=== PATIENT | female | born 1975 | race Caucasian/White ===

== ENCOUNTER 2021-10-03 06:15 | Inpatient (IN) ==
[2021-10-03] MEDS ORDERED: ANCEF VIAL 1 GRAM IVP ONE (06:38)
[2021-10-03] MEDS: D5 1/2 NS 1,000 ML 1,000 ML IV SCH ×5 (06:38→22:07)
[2021-10-03] MEDS ORDERED: NS 100 ML IV 100 ML ONE (06:41)
[2021-10-03] MEDS ORDERED: PEPCID 20 MG VIAL ONE (06:47)
[2021-10-03] MEDS ORDERED: ZEMURON 100 MG VIAL ONE (06:47)
[2021-10-03] MEDS ORDERED: DIPRIVAN VIAL 20 ML ONE (06:47)
[2021-10-03] MEDS ORDERED: REGLAN INJ 10 MG VIAL ONE (06:47)
[2021-10-03] MEDS ORDERED: TORADOL 30 MG VIAL ONE ×2 (06:47→09:10)
[2021-10-03] MEDS ORDERED: XYLOCAINE 2 % (PLAIN) ONE (06:47)
[2021-10-03] MEDS ORDERED: ZOFRAN INJ 4 MG VIAL ONE (06:47)
[2021-10-03] MEDS ORDERED: OFIRMEV IV 1000 MG VIAL 1,000 MG/100 ML VIAL IV ONE (06:47)
[2021-10-03] MEDS ORDERED: BRIDION ONE (06:47)
[2021-10-03] MEDS ORDERED: VERSED ONE (06:48)
[2021-10-03] MEDS ORDERED: FENTANYL VIAL INJ 100 mcg ONE ×2 (06:48→07:46)
[2021-10-03] MEDS ORDERED: K-RIDER 10 MEQ/NS 100 ML 10 MEQ/100 ML BAG IV ONE (06:57)
[2021-10-03] MEDS ORDERED: BETADINE SOLN ONE (07:00)
[2021-10-03 07:10] VITALS: BMI 29.0
[2021-10-03] MEDS ORDERED: XYLOCAINE JELLY TOP ONE (07:26)
[2021-10-03] MEDS ORDERED: ROBINUL ONE (07:30)
[2021-10-03] MEDS ORDERED: LR 1,000 ML IV 1,000 ML IV ONE (08:28)
[2021-10-03] MEDS ORDERED: ProvayBLUE 0.5% ONE (08:35)
[2021-10-03] MEDS ORDERED: DILAUDID INJ ONE ×2 (08:37→10:36)
[2021-10-03] MEDS ORDERED: SUPRANE ONE (09:01)
[2021-10-03] MEDS ORDERED: PHENERGAN INJ 25 MG IM PRN (10:01)
[2021-10-03] MEDS ORDERED: ZOFRAN INJ 4 MG VIAL IVP PRN ×2 (10:01→10:49)
[2021-10-03] MEDS ORDERED: REGLAN INJ 10 MG VIAL IVP PRN (10:01)
[2021-10-03] MEDS ORDERED: BENADRYL INJ 50 MG VIAL IVP PRN ×2 (10:01→10:49)
[2021-10-03] MEDS ORDERED: BARHEMSYS INJ IVP PRN (10:01)
[2021-10-03] MEDS: DILAUDID INJ IVP PRN ×6 (10:11→10:46)
[2021-10-03] MEDS ORDERED: TORADOL 30 MG VIAL IVP PRN (10:49)
[2021-10-03] MEDS: MORPHINE SULFATE PCA 30 MG IVP PRN (14:16)
[2021-10-04] MEDS: MORPHINE SULFATE PCA 30 MG IVP PRN (00:52)
[2021-10-04] MEDS: D5 1/2 NS 1,000 ML 1,000 ML IV SCH ×2 (04:43→13:59)
[2021-10-04 05:36] LABS: BLOOD UREA NITROGEN 13 mg/dL (7-18); CALCIUM 8.5 mg/dL (8.5-10.1); CARBON DIOXIDE 28.4 mmol/L (21-32); CHLORIDE 103 mmol/L (98-107); CREATININE 0.81 mg/dL (0.55-1.02); SODIUM 139 mmol/L (136-145); eGFR NON BLACK RACES > 60 (>60)
[2021-10-04 05:43] LABS: BASOPHILS % (AUTO) 0.9 % (0.2-1.0); EOSINOPHILS # (AUTO) 0.1 x10^3/uL (0.0-0.2); HEMATOCRIT 26.9 % (36.0-47.0); LYMPHOCYTES # (AUTO) 1.5 X10^3/uL (1.3-2.9); LYMPHOCYTES % (AUTO) 26.5 % (21.0-51.0); MEAN CORPUSCULAR HEMOGLOBIN 29.2 pg (27.0-34.0); MEAN CORPUSCULAR HGB CONC 34.6 g/dL (33.0-35.0); MEAN CORPUSCULAR VOLUME 84.6 fL (80.0-100.0); MEAN PLATELET VOLUME 9.6 fL (7.4-11.0); MONOCYTES # (AUTO) 0.6 x10^3/uL (0.3-0.8); MONOCYTES % (AUTO) 11.3 % (0.0-13.0); NEUTROPHILS # (AUTO) 3.3 x10^3/uL (2.2-4.8); NEUTROPHILS % (AUTO) 59.3 % (42.0-75.0); RED BLOOD COUNT 3.18 X10^6/uL (3.5-5.4); RED CELL DISTRIBUTION WIDTH 14.4 % (11.6-16.5); WHITE BLOOD COUNT 5.6 X10^3/uL (3.6-10.0)
[2021-10-04 05:44] LABS: HEMOGLOBIN 9.3 g/dL (12.0-16.0)
[2021-10-04] MEDS ORDERED: ZOLOFT ONE (08:46)
[2021-10-04] MEDS: K-DUR TAB 20 MEQ PO SCH (08:49)
[2021-10-04] MEDS: ESTRACE PO SCH (08:50)
[2021-10-04] MEDS: MOTRIN TAB 800 MG PO PRN ×2 (08:50→16:12)
[2021-10-04] MEDS: ZOLOFT PO SCH (08:50)
[2021-10-04] MEDS: COLACE CAP 100 MG PO SCH ×2 (08:51→20:10)
[2021-10-04] MEDS: LASIX PO SCH ×2 (08:51→17:11)
[2021-10-04] MEDS: PERCOCET TAB 5/325 MG PO PRN ×2 (10:41→19:54)
[2021-10-04] MEDS: BACTROBAN TOPICAL OINT TOP SCH ×2 (13:58→22:16)
[2021-10-04] MEDS: PATIENT'S HOME MEDICATION PO SCH ×2 (13:59→22:16)
[2021-10-04] MEDS: BUSPAR PO SCH ×2 (13:59→22:16)
[2021-10-05] MEDS: MOTRIN TAB 800 MG PO PRN (01:03)
[2021-10-05] MEDS: D5 1/2 NS 1,000 ML 1,000 ML IV SCH (02:43)
[2021-10-05] MEDS: PERCOCET TAB 5/325 MG PO PRN (04:03)
[2021-10-05] MEDS: BUSPAR PO SCH (05:24)
[2021-10-05] MEDS: PATIENT'S HOME MEDICATION PO SCH (05:24)
[2021-10-05] MEDS: BACTROBAN TOPICAL OINT TOP SCH (05:24)
[2021-10-05] MEDS ORDERED: ZOLOFT ONE (06:53)
[2021-10-05] MEDS: COLACE CAP 100 MG PO SCH (08:45)
[2021-10-05] MEDS: K-DUR TAB 20 MEQ PO SCH (08:45)
[2021-10-05] MEDS: ESTRACE PO SCH (08:45)
[2021-10-05] MEDS: ZOLOFT PO SCH (08:46)
[2021-10-05] MEDS: LASIX PO SCH (08:47)
[2021-10-05 10:15] VITALS: BP 126/68
== END 2021-10-05 09:00 | disposition home or self-care (01) | DRG 743 ==
LOC: MED/SURG 06:15 → EDUNIT# 07:30 → MED/SURG 11:54
PROVIDERS: ADMIT Specialist; ATTEND Specialist
DX: N99.4 Postprocedural pelvic peritoneal adhesions; Z01.811 Encounter for preprocedural respiratory examination; Z20.822 Contact with and (suspected) exposure to COVID-19; Z01.810 Encounter for preprocedural cardiovascular examination; R10.2 Pelvic and perineal pain; N80.0 Endometriosis of uterus; N92.5 Other specified irregular menstruation; Z01.818 Encounter for other preprocedural examination; Z01.812 Encounter for preprocedural laboratory examination; N94.4 Primary dysmenorrhea